=== PATIENT | female | born 1955 | race Caucasian/White ===

== ENCOUNTER 2022-02-21 13:00 | Outpatient (RCR) | payer OTHER, SELFPAY | END 2023-02-11 16:08 | disposition home or self-care (01) | PROVIDERS: PCP Family Medicine; Visit Provider Physician Assistant | DX: M76.62 Achilles tendinitis, left leg (principal); M76.61 Achilles tendinitis, right leg; Z51.89 Encounter for other specified aftercare | CPT/HCPCS: 97035; 97110; 97140; 97161; 97530 ==

== ENCOUNTER 2022-05-17 16:11 | Emergency (ER) | payer OTHER, SELFPAY ==
[2022-05-17 16:31] VITALS: BP 119/75; PULSE 82; RESP 18; TEMP 37.2; O2SAT 96; BMI 22.7
--- NOTE | 2022-05-17 17:06 | ED_ITS ---
HPI - General Adult General Chief complaint: Back Injury/Pain Stated complaint: FALL SATURDAY-RT LOWER BACK PAIN,KIDNEY CONCERNS Time Seen by Provider: 05/17/22 16:40 History of Present Illness HPI narrative: This 66-year-old female comes in with an injury to her left flank region. She was outside 4 days ago and it was getting dark and she misstepped and fell landing on her left back. She had injury to her left ribs in this area. She had some initial pain but was able to function normally through the rest of the day. Since then the pain is increased markedly. She has pain with certain movements and when taking deep breaths. She does not report any shortness of breath. She does not have any hematuria. Related Data Home Medications Medication Instructions Recorded Confirmed levetiracetam 1,000 mg tablet 1,000 mg PO Q12H 05/17/22 05/17/22 Allergies Allergy/AdvReac Type Severity Reaction Status Date / Time latex Allergy Mild Rash Verified 05/17/22 16:39 phenytoin [From Dilantin] Allergy Mild Rash Verified 05/17/22 16:39 Review of Systems Status of ROS: Reports: 10 or more systems reviewed and unremarkable except as noted in History and below Narrative: Constitutional: No fevers, no weight gain or loss. Eyes: No discharge. No vision changes. HENT: No congestion, no sore throat, no ear pain. Cardiovascular: No chest pain, no palpitations. Respiratory: No shortness of breath, no wheezes, no cough. Gastrointestinal: No abdominal pain, no vomiting, no diarrhea. Genitourinary: No dysuria, no hematuria. Musculoskeletal: Pain in the left lateral and posterior lateral ribs. Skin: No rashes, no pruritis. Neurological: No dizziness, weakness, sensory change, speech change. Endo/Heme/Allergies: No bruising or bleeding. No polydipsia. Pysch: no suicidality, no anxiety, no insomnia. All other systems reviewed and are negative. Exam Narrative: Exam Narrative: Constitutional: Well-developed, well-nourished, no acute distress. HEENT: Normocephalic, atraumatic. Neck: Normal range of motion. Nontender. Supple. Heart: Regular. No murmurs. Normal rate. Intact distal pulses. Lungs: Clear to auscultation. No chest discomfort. No wheezes, rhonchi, or rales. Abdomen: Normal bowel sounds. Nontender. No rebound tenderness. Genitalia: Deferred. Back: No midline tenderness. Normal range of motion. Tenderness on the lateral and posterior lateral ribs on the left side. No sign of bruising. Pain is distinctly reproduced with taking a deep breath and with certain movements. Also there is pain when palpating in this area. Extremities: Normal range of motion. No injury. Skin: Intact. No rash. Warm. No erythema or pallor. Neurologic: No altered sensation. No weakness. Alert and oriented. Psychiatric: No suicidality. No anxiety or depression. No insomnia. Nursing notes and vitals signs are reviewed. Const: Vital Signs, click to edit/add: Vital Signs - 24 hr 05/17/22 16:31 Temperature 98.9 F Pulse Rate [Right Pulse Oximeter] 82 Respiratory Rate 18 Blood Pressure [Ri ght Upper Arm] 119/75 Pulse Oximetry 96 Oxygen Delivery Me thod Room Air Course Vital Signs Vital signs: Initial Vital Signs Temperature 98.9 F 05/17/22 16:31 Temperature Source Temporal Artery Scan 05/17/22 16:31 Pulse Rate 82 05/17/22 16:31 Respiratory Rate 18 05/17/22 16:31 Blood Pressure 119/75 05/17/22 16:31 Blood Pressure Mean 89 05/17/22 16:31 Blood Pressure Position Sitting 05/17/22 16:31 Pulse Oximetry 96 05/17/22 16:31 Oxygen Delivery Method 05/17/22 16:31 Vital Signs Temperature 98.9 F 05/17/22 16:31 Pulse Rate 82 05/17/22 16:31 Respiratory Rate 18 05/17/22 16:31 Blood Pressure 119/75 05/17/22 16:31 Pulse Oximetry 96 05/17/22 16:31 Oxygen Delivery Method 05/17/22 16:31 Temperature 98.9 F 05/17/22 16:31 Pulse Rate 82 05/17/22 16:31 Respiratory Rate 18 05/17/22 16:31 Blood Pressure 119/75 05/17/22 16:31 Pulse Oximetry 96 05/17/22 16:31 Oxygen Delivery Method 05/17/22 16:31 Medical Decision Making MDM Narrative Medical decision making narrative: This patient comes in with injury to her left posterior ribs as described above. Her lungs sound normal bilaterally. Her pain is reproduced and increased distinctly with certain movements. She does not have any hematuria. There is no abdominal tenderness. I did discuss imaging options including chest x-ray with rib detail and ultrasound of the left kidney. In a process of shared decision making she declined these studies. I also offered a rib belt and prescription for medicine for pain which she also declined. She was reassured enough with the exam and normal vital signs. Discharge Plan Discharge Clinical Impression: Contusion of rib on left side Patient Disposition: Home, Self-Care Condition: Stable Additional Instructions: Use [id number] medicines as needed and directed. Follow up with MD or return if worsening. Prescriptions: No Action levetiracetam 1,000 mg tablet 1,000 mg PO Q12H Label Comments: TAKE 1 TABLET BY MOUTH TWICE DAILY Follow Up/Referrals: Paul Blakely MD [Primary Care Provider] - Stand Alone Forms: [employer] Info Instructions
--- NOTE | 2022-05-17 18:03 | ED.NURSE ---
Patient left prior to receiving discharge information.
== END 2022-05-17 17:10 | disposition home or self-care (01) ==
LOC: ED 17:11
PROVIDERS: Emergency Provider Emergency Medicine Emergency Medical Services; PCP Family Medicine
DX: S20.212A Contusion of left front wall of thorax, initial encounter (principal); W19.XXXA Unspecified fall, initial encounter
CPT/HCPCS: 99283; 99284